=== PATIENT | male | born 1940 | race Caucasian/White ===

== ENCOUNTER 2016-10-03 10:05 | Emergency (ER) | payer MEDICARE, OTHER ==
[2016-10-03] MEDS ORDERED: SYNTHROID25 MC1 PO (10:46)
[2016-10-03] MEDS ORDERED: FLOMAX0.4 M1 PO (10:46)
[2016-10-03] MEDS ORDERED: VITAMIN D31000 UNI3 PO (10:46)
[2016-10-03] MEDS ORDERED: ZOCOR20 M1 PO (10:46)
[2016-10-03] MEDS ORDERED: ASPIRIN81 M1 PO (10:46)
[2016-10-03] MEDS ORDERED: TOPROL XL25 M1 PO (10:47)
[2016-10-03] MEDS ORDERED: BENADRYL25 M3 PO (10:47)
[2016-10-03] MEDS ORDERED: PEPCID20 M1 PO (10:47)
[2016-10-03] MEDS ORDERED: XANAX0.25 M1 PO (10:47)
[2016-10-03 10:53] LABS: BASO % 0.2 % (0-2); EOS % 2.8 % (0-7); EOSINOPHIL ABSOLUTE COUNT 0.2 tho/cmm (0.0-0.7); HCT-HEMATOCRIT 39.3 % (36.0-53.5); HGB-HEMOGLOBIN 13.4 gm/dl (13.5-17.0); IMMATURE GRANULOCYTES ABSOLUTE 0.01 tho/cmm (0-0.03); IMMATURE GRANULOCYTES PERCENT 0.1 % (0-0.3); LYMPH % 22.5 % (20-45); LYMPH ABSOLUTE COUNT 1.9 tho/cmm (0.8-4.5); MCH (MEAN CORPUSCULAR HGB) 30.7 pg (28.0-32.0); MCHC MEAN CORPUSCULAR HGB CONC 34.1 % (32.0-36.0); MCV (MEAN CELL VOLUME) 90.1 fl (82.0-96.0); MEAN PLATELET VOLUME 8.7 cmc (9.4-12.4); MONO % 7.4 % (0-12); MONOCYTE ABSOLUTE COUNT 0.6 tho/cmm (0.0-1.2); NEUTROPHIL ABSOLUTE COUNT 5.6 tho/cmm (1.6-8.0); NEUTROPHIL-AUTOMATED 5.6 tho/cmm (1.6-8.0); PLATELET COUNT 163 tho/cmm (150-450); RED BLOOD COUNT 4.36 mil/cmm (4.40-5.70); RED CELL DISTRIBUTION WIDTH 13.7 % (12.4-16.4); WHITE BLOOD COUNT 8.3 tho/cmm (4.0-10.0)
[2016-10-03 11:10] LABS: ANION GAP 14 mmol/L (0-20); BLOOD UREA NITROGEN 28 mg/dl (6-24); CALCIUM 8.5 mg/dl (8.5-10.5); CARBON DIOXIDE-VENOUS 23 mmol/L (22-32); CHLORIDE 107 mmol/l (96-110); GLUCOSE 162 mg/dL (70-110); POTASSIUM 4.2 mmol/L (3.7-5.1); SODIUM 140 mmol/L (135-145); eGFR VALUE FOR BLACK 51 mL/Min
== END 2016-10-03 13:00 ==
LOC: EDMED 10:05
PROVIDERS: Emergency Medicine
DX: R55 Syncope and collapse (principal); I51.9 Heart disease, unspecified; Z95.0 Presence of cardiac pacemaker; Z79.82 Long term (current) use of aspirin; Z79.899 Other long term (current) drug therapy